=== PATIENT | male | born 1990 | race Caucasian/White ===

== ENCOUNTER 2019-04-28 02:24 | Emergency (ER) | payer SELFPAY ==
[~2019-04-28] VITALS: Ht 175.3 cm; Wt 107.0 kg
[~2019-04-28 02:24] MED LIST: CEFDINIR300 MG PO
== END 2019-04-28 03:00 | disposition home or self-care (01) ==
LOC: ER 02:24
DX: R50.9 Fever, unspecified (principal); R05 Cough; J20.9 Acute bronchitis, unspecified
CPT/HCPCS: 93005; 99282

== ENCOUNTER 2020-12-29 04:00 | Emergency (ER) | payer BC, OTHER ==
[~2020-12-29] VITALS: Ht 175.3 cm; Wt 107.0 kg
== END 2020-12-29 05:25 | disposition home or self-care (01) ==
LOC: ER 04:39
DX: S60.222A Contusion of left hand, initial encounter (principal); W22.09XA Striking against other stationary object, initial encounter; Y92.89 Other specified places as the place of occurrence of the external cause; F41.9 Anxiety disorder, unspecified; F32.9 Major depressive disorder, single episode, unspecified
CPT/HCPCS: 99283